=== PATIENT | female | born 1960 | race American Indian/Alaskan Native ===

== ENCOUNTER 2018-01-09 23:51 | Emergency (ER) | payer BC, OTHER ==
[2018-01-09] MEDS ORDERED: Ketorolac 10 MG Tab PO ONE (23:52)
[2018-01-10 00:11] VITALS: BP 153/81
--- NOTE | 2018-01-10 00:48 | EDM.PDOC ---
ED HPI GENERAL MEDICAL PROBLEM - General Chief Complaint: Chest Pain Stated Complaint: CHEST PAIN [id number] Time Seen by Provider: 01/10/18 00:25 Source of Information: Reports: Patient History Limitations: Reports: No Limitations - History of Present Illness INITIAL COMMENTS - FREE TEXT/NARRATIVE: This 57 yo female patient reports to the ED with right sided chest pain that started yesterday morning (01/09/18). The patient reports her symptoms have been intermittent all day. The patient reports that she struggled with her car door 2 days ago, but has had no additional injury to the area. The patient reports increased pain with deep breathing and moving her right arm. The patient has not taken anything for her symptoms. Onset: Today Duration: Constant Location: Reports: Chest (right sided chest pain) Quality: Reports: Ache, Sharp, Stabbing Severity: Severe Improves with: Reports: Rest Worsens with: Reports: Movement Context: Reports: Other Associated Symptoms: Reports: Chest Pain (right sided chest wall pain) Right Chest Pain Score (Numeric/FACES): 7 - Related Data Allergies Allergy/AdvReac Type Severity Reaction Status Date / Time strawberry [[place]] Allergy Hives Verified 05/10/16 21:49 tomato [Tomato] Allergy Hives Verified 05/10/16 21:49 Home Meds: Home Meds . [No Known Home Meds] 01/10/18 [History] Past Medical History HEENT History: Reports: Impaired Vision [employer] History: Reports: Psychiatric History: Reports: Anxiety Endocrine/Metabolic History: Reports: Diabetes, Type II Hematologic History: Reports: Bleeding Disorder - Past Surgical History GI Surgical History: Reports: Appendectomy, Cholecystectomy Social & Family History - Tobacco Use Smoking Status *Q: Unknown Ever Smoked - Caffeine Use Caffeine Use: Reports: Coffee, Soda ED ROS GENERAL - Review of Systems Review Of Systems: ROS reveals no pertinent complaints other than HPI. ED EXAM, GENERAL - Physical Exam Exam: See Below Exam Limited By: No Limitations General Appearance: Alert, WD/WN, Moderate Distress Eye Exam: Bilateral Eye: EOMI, Normal Inspection, PERRL Ears: Normal External Exam, Normal Canal, Hearing Grossly Normal, Normal TMs Nose: Normal Inspection, Normal Mucosa, No Blood Throat/Mouth: Normal Inspection, Normal Lips, Normal Teeth, Normal Gums, Normal Oropharynx, Normal Voice, No Airway Compromise Head: Atraumatic, Normocephalic Neck: Normal Inspection, Supple, Non-Tender, Full Range of Motion Respiratory/Chest: No Respiratory Distress, Lungs Clear, Normal Breath Sounds, No Accessory Muscle Use, Other (right sided chest wall tenderness) Cardiovascular: Normal Peripheral Pulses, Regular Rate, Rhythm, No Edema, No Gallop, No JVD, No Murmur, No Rub GI/Abdominal: Normal Bowel Sounds, Soft, Non-Tender, No Organomegaly, No Distention, No Abnormal Bruit, No Mass (Female) Exam: Deferred Rectal (Female) Exam: Deferred Back Exam: Normal Inspection, Full Range of Motion, NT Extremities: Normal Inspection, Normal Range of Motion, Non-Tender, Normal Capillary Refill, No Pedal Edema Neurological: Alert, Oriented, CN II-XII Intact, Normal Cognition, Normal Gait, Normal Reflexes, No Motor/Sensory Deficits Psychiatric: Normal Affect, Normal Mood Skin Exam: Warm, Dry, Intact, Normal Color, No Rash Lymphatic: No Adenopathy Course - Vital Signs Last Recorded V/S: Last Vital Signs Temp 36.4 C 01/10/18 00:10 Pulse 84 01/10/18 00:10 Resp 23 H 01/10/18 00:10 BP 153/81 H 01/10/18 00:10 Pulse Ox 94 L 01/10/18 00:10 - Orders/Labs/Meds Orders: Active Orders 24 hr Category Date Time Status EKG Documentation Completion [RC] URGENT Care 01/09/18 23:57 Ordered UA W/MICROSCOPIC [URIN] Stat Lab 01/10/18 00:00 Ordered Labs: Laboratory Tests 01/09/18 01/09/18 01/09/18 Range/Units 00:10 00:10 00:10 WBC 6.9 (5.0-10.0) 10^3/uL RBC 4.60 (4.2-5.4) 10^6/uL Hgb 15.5 (12.0-16.0) g/dL Hct 46.1 (37.0-47.0) % MCV 100.2 H (80-100) fL MCH 33.7 (27.0-34.0) pg MCHC 33.6 (33.0-35.0) g/dL Plt Count 226 (150-450) 10^3/uL Neut % (Auto) 57.9 (42.2-75.2) % Lymph % (Auto) 28.2 (20.5-50.1) % [place] % (Auto) 9.9 H (2-8) % Eos % (Auto) 3.1 H (1.0-3.0) % Baso % (Auto) 0.9 (0.0-1.0) % PT (9.0-12.0) SEC INR (0.9-1.2) D-Dimer, Quantitative < 100 (0-400) ng/mL Sodium 137 (135-145) mmol/L Potassium 4.5 (3.6-5.0) mmol/L Chloride 101 (101-111) mmol/L Carbon Dioxide 28.0 (21.0-31.0) mmol/L Anion Gap 12.5 BUN 16 (7-18) mg/dL Creatinine 0.7 (0.6-1.3) mg/dL Est Cr Clr Drug Dosing 62.92 mL/min Estimated GFR (MDRD) > 60 BUN/Creatinine Ratio 22.85 Glucose 567 H* (74-105) mg/dL Calcium 9.5 (8.4-10.2) mg/dl Total Bilirubin 0.8 (0.2-1.0) mg/dL AST 40 (10-42) IU/L ALT 63 H (10-60) IU/L Alkaline Phosphatase 224 H (42-121) IU/L Troponin I < 0.02 (0.00-0.02) ng/ml Total Protein 7.4 (6.7-8.2) g/dl Albumin 4.0 (3.2-5.5) g/dl Globulin 3.4 Albumin/Globulin Ratio 1.18 Urine Color (YELLOW) Urine Appearance (CLEAR) Urine pH (5.0-9.0) Ur Specific [place] (1.005-1.030) Urine Protein (NEGATIVE) Urine Glucose (UA) (NEGATIVE) Urine Ketones (NEGATIVE) Urine Occult Blood (NEGATIVE) Urine Nitrite (NEGATIVE) Urine Bilirubin (NEGATIVE) Urine Urobilinogen (0.2-1.0) mg/dL Ur Leukocyte Esterase (NEGATIVE) Urine RBC /HPF Urine WBC (0-5/HPF) /HPF Ur Epithelial Cells /HPF Urine Bacteria (0-FEW/HPF) /HPF Urine Yeast (0/HPF) /HPF 01/09/18 01/10/18 Range/Units 00:10 00:05 WBC (5.0-10.0) 10^3/uL RBC (4.2-5.4) 10^6/uL Hgb (12.0-16.0) g/dL Hct (37.0-47.0) % MCV (80-100) fL MCH (27.0-34.0) pg MCHC (33.0-35.0) g/dL Plt Count (150-450) 10^3/uL Neut % (Auto) (42.2-75.2) % Lymph % (Auto) (20.5-50.1) % [place] % (Auto) (2-8) % Eos % (Auto) (1.0-3.0) % Baso % (Auto) (0.0-1.0) % PT 9.1 (9.0-12.0) SEC INR 0.9 (0.9-1.2) D-Dimer, Quantitative (0-400) ng/mL Sodium (135-145) mmol/L Potassium (3.6-5.0) mmol/L Chloride (101-111) mmol/L Carbon Dioxide (21.0-31.0) mmol/L Anion Gap BUN (7-18) mg/dL Creatinine (0.6-1.3) mg/dL Est Cr Clr Drug Dosing mL/min Estimated GFR (MDRD) BUN/Creatinine Ratio Glucose (74-105) mg/dL Calcium (8.4-10.2) mg/dl Total Bilirubin (0.2-1.0) mg/dL AST (10-42) IU/L ALT (10-60) IU/L Alkaline Phosphatase (42-121) IU/L Troponin I (0.00-0.02) ng/ml Total Protein (6.7-8.2) g/dl Albumin (3.2-5.5) g/dl Globulin Albumin/Globulin Ratio Urine Color Light yellow (YELLOW) Urine Appearance Clear (CLEAR) Urine pH 7.0 (5.0-9.0) Ur Specific [place] 1.015 (1.005-1.030) Urine Protein Negative (NEGATIVE) Urine Glucose (UA) 500 H (NEGATIVE) Urine Ketones Negative (NEGATIVE) Urine Occult Blood Negative (NEGATIVE) Urine Nitrite Negative (NEGATIVE) Urine Bilirubin Negative (NEGATIVE) Urine Urobilinogen 0.2 (0.2-1.0) mg/dL Ur Leukocyte Esterase Negative (NEGATIVE) Urine RBC 0-5 /HPF Urine WBC 0-5 (0-5/HPF) /HPF Ur Epithelial Cells Rare /HPF Urine Bacteria Rare (0-FEW/HPF) /HPF Urine Yeast Rare H (0/HPF) /HPF Meds: Medications Discontinued Medications Generic Name Dose Route Start Last Admin Trade Name Loraine PRN Reason Stop Dose Admin Ketorolac Tromethamine 60 mg 01/10/18 00:56 Toradol IM 01/10/18 00:57 ONETIME ONE Departure - Departure Time of Disposition: 00:58 Disposition: Home, Self-Care 01 Condition: Fair Clinical Impression: Non-cardiac chest pain Chest wall muscle strain Qualifiers: Encounter type: initial encounter Qualified Code(s): S29.011A - Strain of muscle and tendon of front wall of thorax, initial encounter Instructions: Nonspecific Chest Pain, [id number], Chest Wall Pain, Easy-to- Read Forms: ED Department Discharge Care Plan Goals: The patient was advised of the examination, lab and EKG results during the visit. The patient was given an injection of Toradol while in the ED. The patient was discharged with Toradol (10 mg) #1 to take in 6 hours and a script for Toradol (10 mg) #20 to take 1 by mouth every 6 hours. The patient was advised to take her medications as she was prescribed for her diabetes. The patient should visit her primary care facility next week for continued evaluation and management. If the patient has any additional symptoms or concerns, the patient should visit her primary care facility or return to the emergency department. - My Orders Last 24 Hours: My Active Orders 01/09/18 23:57 EKG Documentation Completion [RC] URGENT 01/10/18 00:00 UA W/MICROSCOPIC [URIN] Stat - Assessment/Plan Last 24 Hours: My Active Orders 01/09/18 23:57 EKG Documentation Completion [RC] URGENT 01/10/18 00:00 UA W/MICROSCOPIC [URIN] Stat
[2018-01-10 00:49] LABS: CHLORIDE,CL 101 mmol/L (101-111); SODIUM,NA 137 mmol/L (135-145)
[2018-01-10] MEDS ORDERED: Ketorolac 30 MG/ML SDV IM ONE (00:56)
[2018-01-10] MEDS ORDERED: Ketorolac 10 MG Tab ONE (01:01)
--- NOTE | 2018-01-13 07:37 | EKG ---
01/09/2018- ALEKSANDAR DE LEON - FINDINGS: A 12-lead EKG shows normal sinus rhythm with a heart rate of 91. No significant ST elevation or ST depression noted on this 12-lead EKG except for nonspecific ST-T wave changes noted on lead III and aVF. [facility] /[id number]
== END 2018-01-10 01:12 | disposition home or self-care (01) ==
LOC: DL.ED 23:51
DX: S29.011A Strain of muscle and tendon of front wall of thorax, initial encounter (principal); E11.9 Type 2 diabetes mellitus without complications; Z91.018 Allergy to other foods; X58.XXXA Exposure to other specified factors, initial encounter
CPT/HCPCS: 36415; 80053; 81001; 84484; 85025; 85379; 85610; 96372; 99284; J1885; 99283; A9270-GY

== ENCOUNTER 2019-09-11 21:52 | Emergency (ER) | payer OTHER ==
[2019-09-11 21:38] VITALS: BP 133/69; PULSE 89
--- NOTE | 2019-09-11 21:43 | EDM.PDOC ---
ED HPI GENERAL MEDICAL PROBLEM - General Chief Complaint: Neuro Symptoms/Deficits Stated Complaint: LAW ENFORCEMENT Time Seen by Provider: 09/11/19 21:42 Source of Information: Reports: Patient, Police History Limitations: Reports: No Limitations - History of Present Illness INITIAL COMMENTS - FREE TEXT/NARRATIVE: sent from halfway for left side weakness since 3pm, getting worse, some CP/SOB, states had stroke on left side 2014 got better but today it is new. Chest Pain Score (Numeric/FACES): 6 - Related Data Allergies Allergy/AdvReac Type Severity Reaction Status Date / Time strawberry [[place]] Allergy Hives Verified 09/11/19 21:40 tomato [Tomato] Allergy Hives Verified 09/11/19 21:40 Home Meds: Home Meds Alogliptin Benzoate [Alogliptin] 25 mg PO DAILY 09/11/19 [History] Aspirin [Halfprin] 81 mg PO DAILY 09/11/19 [History] Losartan Potassium 25 mg PO DAILY 09/11/19 [History] Pioglitazone [Actos] 15 mg PO DAILY 09/11/19 [History] Simvastatin 20 mg PO BEDTIME 09/11/19 [History] metFORMIN HCl [Metformin HCl] 1,000 mg PO BID 09/11/19 [History] Past Medical History HEENT History: Reports: Impaired Vision 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 ED EXAM, NEURO - Physical Exam Exam: See Below Exam Limited By: No Limitations General Appearance: Alert, WD/WN, No Apparent Distress Eye Exam: Bilateral Eye: PERRL (pupils ER @ 4mm) Ears: Hearing Grossly Normal Throat/Mouth: Normal Voice, No Airway Compromise Head Exam: Atraumatic Neck: Non-Tender, Full Range of Motion Respiratory/Chest: No Respiratory Distress Cardiovascular: Regular Rate, Rhythm GI/Abdominal: Soft, Non-Tender Neurological: Other (left arm-leg unable to raise. face symmetrical) Psychiatric: Flat Affect Skin Exam: Warm, Dry, Normal Color Course - Vital Signs Last Recorded V/S: Last Vital Signs Temp 36.8 C 09/11/19 21:33 Pulse 89 09/11/19 21:33 Resp 20 09/11/19 21:33 BP 133/69 09/11/19 21:33 Pulse Ox 97 09/11/19 21:33 - Orders/Labs/Meds Orders: Active Orders 24 hr Category Date Time Status EKG 12 Lead [EKG Documentation Completion] [RC] STAT Care 09/11/19 21:30 Active Labs: Laboratory Tests 09/11/19 09/11/19 Range/Units 21:40 21:40 WBC 8.4 (5.0-10.0) 10^3/uL RBC 4.72 (4.2-5.4) 10^6/uL Hgb 16.0 (12.0-16.0) g/dL Hct 46.3 (37.0-47.0) % MCV 98.1 (80-100) fL MCH 33.9 (27.0-34.0) pg MCHC 34.6 (33.0-35.0) g/dL Plt Count 240 (150-450) 10^3/uL Neut % (Auto) 59.7 (42.2-75.2) % Lymph % (Auto) 27.9 (20.5-50.1) % [place] % (Auto) 11.0 H (2-8) % Eos % (Auto) 0.8 L (1.0-3.0) % Baso % (Auto) 0.6 (0.0-1.0) % Sodium 140 (135-145) mmol/L Potassium 3.1 L (3.6-5.0) mmol/L Chloride 104 (101-111) mmol/L Carbon Dioxide 26.0 (21.0-31.0) mmol/L Anion Gap 13.1 BUN 14 (7-18) mg/dL Creatinine 0.6 (0.6-1.3) mg/dL Est Cr Clr Drug Dosing TNP Estimated GFR (MDRD) > 60 BUN/Creatinine Ratio 23.33 Glucose 242 H (74-105) mg/dL Calcium 9.7 (8.4-10.2) mg/dl Total Bilirubin 1.3 H (0.2-1.0) mg/dL AST 33 (10-42) IU/L ALT 46 (10-60) IU/L Alkaline Phosphatase 101 (42-121) IU/L Troponin I < 0.02 (0.00-0.02) ng/ml Total Protein 7.8 (6.7-8.2) g/dl Albumin 4.3 (3.2-5.5) g/dl Globulin 3.5 Albumin/Globulin Ratio 1.23 Ketones Negative - Re-Assessments/Exams Free Text/Narrative Re-Assessment/Exam: 09/12/19 00:[address] Oh @ [facility] who kindly accepted pt. Departure - Departure Time of Disposition: 00:03 Disposition: DC/Tfer to [facility] 02 Condition: Fair Clinical Impression: Left hemiplegia - Discharge Information Forms: Interfacility Transfer EMTALA Sepsis Event Note - Evaluation Sepsis Screening Result: No Definite Risk - Focused Exam Vital Signs: Vital Signs Temp Pulse Resp BP Pulse Ox 09/11/19 21:33 36.8 C 89 20 133/69 97 Date Exam was Performed: 09/12/19 Time Exam was Performed: 00:02 - My Orders Last 24 Hours: My Active Orders 09/11/19 21:30 EKG 12 Lead [EKG Documentation Completion] [RC] STAT - Assessment/Plan Last 24 Hours: My Active Orders 09/11/19 21:30 EKG 12 Lead [EKG Documentation Completion] [RC] STAT
[2019-09-11 22:10] LABS: ANION GAP 13.1; CHLORIDE,CL 104 mmol/L (101-111); SODIUM,NA 140 mmol/L (135-145)
== END 2019-09-12 01:00 ==
LOC: DL.ED 21:52
DX: G81.94 Hemiplegia, unspecified affecting left nondominant side (principal); E11.9 Type 2 diabetes mellitus without complications; Z91.018 Allergy to other foods; Z79.84 Long term (current) use of oral hypoglycemic drugs; Z79.82 Long term (current) use of aspirin; Z79.899 Other long term (current) drug therapy; Z90.49 Acquired absence of other specified parts of digestive tract; Z86.73 Personal history of transient ischemic attack (TIA), and cerebral infarction without residual deficits
CPT/HCPCS: 36415; 70450; 71045; 80053; 82009; 82962; 84484; 85025; 93005; 99285-25

== ENCOUNTER 2022-11-13 05:22 | Day surgery (SDC) | payer MEDICAID, OTHER ==
[~2022-11-13 05:22] MED LIST: Sodium Chloride 0.9% 10 ML Syringe FLUSH PRN; Sodium Chloride 0.9% 10 ML Syringe FLUSH SCH
[2022-11-13] MEDS ORDERED: Dextrose 5%-0.45% NaCl 1,000 ML IV SCH (06:00)
[2022-11-13] MEDS ORDERED: fentaNYL 100 MCG/2 ML SDV ONE (06:17)
[2022-11-13] MEDS ORDERED: Midazolam 1 MG/ML 2 ML SDV ONE (06:17)
[2022-11-13] MEDS ORDERED: fentaNYL 100 MCG/2 ML SDV IV ONE ×2 (06:31)
[2022-11-13] MEDS ORDERED: Midazolam 1 MG/ML 2 ML SDV IV ONE ×2 (06:32)
[2022-11-13 08:45] VITALS: BP 161/74; PULSE 74
== END 2022-11-13 08:55 | disposition home or self-care (01) ==
LOC: DL.ENDO 05:22
PROVIDERS: ATTEND Internal Medicine Gastroenterology
DX: K63.5 Polyp of colon (principal); K57.30 Diverticulosis of large intestine without perforation or abscess without bleeding; E11.9 Type 2 diabetes mellitus without complications; E78.5 Hyperlipidemia, unspecified; I10 Essential (primary) hypertension; E66.09 Other obesity due to excess calories; Z90.49 Acquired absence of other specified parts of digestive tract; Z80.0 Family history of malignant neoplasm of digestive organs; Z68.33 Body mass index [BMI] 33.0-33.9, adult
CPT/HCPCS: J2250; J3010; J7042

== ENCOUNTER 2024-01-20 16:45 | Emergency (ER) | payer BC, OTHER ==
[2024-01-20 17:11] LABS: HEMATOCRIT 34.2 % (37.0-47.0); MEAN CORPUSCULAR HEMOGLOBIN 33.3 pg (27.0-34.0); MEAN CORPUSCULAR HGB CONC 32.2 g/dL (33.0-35.0); MEAN CORPUSCULAR VOLUME 103.6 fL (80-100); PLATELET COUNT,PLT 151 10^3/uL (150-450)
[2024-01-20 17:20] LABS: BASOPHILS PERCENT AUTO 0.8 % (0.0-1.0); LYMPHOCYTES PERCENT AUTO 16.1 % (20.5-50.1); MONOCYTES PERCENT AUTO 0.8 % (2-8); NEUTROPHILS PERCENT AUTO 78.3 % (42.2-75.2); WHITE BLOOD CELL COUNT,WBC 1.2 10^3/uL (5.0-10.0)
[2024-01-20 17:25] LABS: INR 0.9 (0.9-1.2); PROTHROMBIN TIME 9.2 SEC (9.0-12.0); PTT,PARTIAL THROMBOPLSTIN TIME 24.5 SEC (22.0-34.0)
[2024-01-20] MEDS: Sodium Chloride 0.9% 10 ML Syringe FLUSH PRN (17:29)
[2024-01-20 17:30] LABS: ALBUMIN 2.1 g/dL (3.4-5.0); ANION GAP 14.3 mEq/L (7-13); BILIRUBIN TOTAL 0.9 mg/dL (0.2-1.0); BUN/CREATININE RATIO 22.7 (No establ ref range); C-REACTIVE PROTEIN 8.02 ng/dL (<=0.50); CALCIUM 8.3 mg/dL (8.5-10.1); CREATININE 0.97 mg/dL (0.55-1.02); EST CRCL DRUG DOSING (CG) 42.09 mL/min; LACTIC ACID 1.3 mmol/L (0.4-2.0); MAGNESIUM 1.8 mg/dL (1.8-2.4); POTASSIUM,K 4.3 mmol/L (3.5-5.1); PROTEIN TOTAL,TP 6.4 g/dL (6.4-8.2)
[2024-01-20] MEDS: Piperacillin/Tazobactam 4.5 GM in Sodium Chloride 0.9% 100 ML IV ONE (17:33)
[2024-01-20 17:44] LABS: A/G RATIO 0.49
[2024-01-20 17:50] LABS: CORONAVIRUS COVID-19 NAA NEGATIVE (NEGATIVE); INFLUENZA A NAA NEGATIVE (NEGATIVE); INFLUENZA B NAA NEGATIVE (NEGATIVE); RESPIRATORY SYNCYTIAL VIR NAA NEGATIVE (NEGATIVE)
[2024-01-20 18:11] LABS: BAND PERCENT MAN 2 %; EOSINOPHILS PERCENT MAN 6 % (1-3); LYMPHOCYTES PERCENT MAN 18 % (20-50); METAMYELOCYTE PERCENT MAN 2; MONOCYTES PERCENT MAN 1 % (2-8); SEG NEUTROPHILS PERCENT MAN 71 % (42-75)
[2024-01-20] MEDS: Vancomycin 1.5 GM in Sodium Chloride 0.9% 500 ML IV ONE (18:16)
[2024-01-20 18:24] LABS: APPEARANCE,URINE CLEAR (CLEAR); BILIRUBIN,URINE NEGATIVE (NEGATIVE); COLOR,URINE YELLOW (YELLOW); GLUCOSE,URINE 500 (NEGATIVE); KETONES,URINE NEGATIVE (NEGATIVE); LEUKOCYTE ESTERASE,URINE NEGATIVE (NEGATIVE); NITRITE,URINE NEGATIVE (NEGATIVE); OCCULT BLOOD,URINE MODERATE (NEGATIVE); PROTEIN,URINE >=300 (NEGATIVE); UROBILINOGEN,URINE 0.2 mg/dL (0.2-1.0)
[2024-01-20 18:51] LABS: BACTERIA,URINE MODERATE /HPF (0-FEW/HPF); EPITHELIAL CELLS,URINE FEW /HPF (NOT SEEN); MUCUS,URINE OCCASIONAL /LPF (NOT SEEN); WBC,URINE 0-5 /HPF (0-5/HPF)
[2024-01-20 18:56] VITALS: BP 133/59; PULSE 106
== END 2024-01-20 19:35 ==
LOC: DL.ED 16:45
DX: A41.9 Sepsis, unspecified organism (principal); J18.9 Pneumonia, unspecified organism; R09.89 Other specified symptoms and signs involving the circulatory and respiratory systems; I51.7 Cardiomegaly; I10 Essential (primary) hypertension; E11.9 Type 2 diabetes mellitus without complications; Z91.018 Allergy to other foods; Z88.8 Allergy status to other drugs, medicaments and biological substances; Z79.82 Long term (current) use of aspirin; Z79.899 Other long term (current) drug therapy; Z86.16 Personal history of COVID-19; Z90.49 Acquired absence of other specified parts of digestive tract
CPT/HCPCS: 0241U; 36415; 71045; 80053; 81001; 83605; 83735; 83880; 84145; 84484; 85025; 85610; 85730; 86140; 87040; 87077; 87186; 93005; 93010; 96365; 96367; 99285; J2543; J3370; J3490; J7040

== ENCOUNTER 2025-03-08 05:17 | Emergency (ER) | payer SELFPAY ==
[2025-03-08] MEDS ORDERED: Sodium Chloride 0.9% 10 ML Syringe FLUSH PRN (05:48)
[2025-03-08 05:58] LABS: BASOPHILS PERCENT AUTO 0.6 % (0.0-1.0); EOSINOPHILS PERCENT AUTO 5.8 % (1.0-3.0); LYMPHOCYTES PERCENT AUTO 27.5 % (20.5-50.1); MONOCYTES PERCENT AUTO 10.3 % (2-8); NEUTROPHILS PERCENT AUTO 55.8 % (42.2-75.2); PLATELET COUNT,PLT 192 10^3/uL (150-450); RED BLOOD CELL COUNT 3.03 10^6/uL (4.2-5.4); WHITE BLOOD CELL COUNT,WBC 4.7 10^3/uL (5.0-10.0)
[2025-03-08 06:15] LABS: D-DIMER QUANTITATIVE 1060.0 ng/mL (0-400)
[2025-03-08 06:19] LABS: ALANINE AMINOTRANSFERASE,ALT 23.0 U/L (14-59); ASPARTATE AMNIOTRANSFERASE,AST 31.0 U/L (15-37); BILIRUBIN TOTAL 0.7 mg/dL (0.2-1.0); BLOOD UREA NITROGEN,BUN 20.0 mg/dL (7-18); CARBON DIOXIDE,CO2 27.0 mmol/L (21-32); CHLORIDE,CL 113.0 mmol/L (98-107); CREATININE 1.47 mg/dL (0.55-1.02); EST CRCL DRUG DOSING (CG) 27.41 mL/min; GLUCOSE RANDOM 138.0 mg/dL (70-99); POTASSIUM,K 3.1 mmol/L (3.5-5.1); PROTEIN TOTAL,TP 5.9 g/dL (6.4-8.2); SODIUM,NA 146.0 mmol/L (136-145)
[2025-03-08 06:22] LABS: A/G RATIO 0.84; ESTIMATED GFR 39.0 mL/min (>=60)
[2025-03-08 06:25] LABS: B-TYPE NATRIURETIC PEPTIDE,BNP 1020.0 pg/ml (0-100)
[2025-03-08] MEDS: Iopamidol 612 MG/ML 100 ML Bottle IVPUSH ONE (06:36)
[2025-03-08] MEDS: Potassium Chloride 10 MEQ Tab.ER PO ONE (07:07)
[2025-03-08 07:11] LABS: INR 0.9 (0.9-1.2); PTT,PARTIAL THROMBOPLSTIN TIME 24.1 SEC (22.0-34.0)
[2025-03-08] MEDS: Iopamidol 755 Mg/ML 100 ML Bottle IVPUSH ONE (07:37)
[2025-03-08 08:33] LABS: APPEARANCE,URINE SLIGHTLY CLOUDY (CLEAR); GLUCOSE,URINE 500 (NEGATIVE); OCCULT BLOOD,URINE MODERATE (NEGATIVE)
[2025-03-08 08:53] VITALS: BP 187/81; PULSE 74
[2025-03-08 08:58] LABS: EPITHELIAL CELLS,URINE FEW /HPF (NOT SEEN)
== END 2025-03-08 08:46 | disposition home or self-care (01) ==
LOC: DL.ED 05:17
DX: R07.89 Other chest pain (principal); I10 Essential (primary) hypertension; E11.9 Type 2 diabetes mellitus without complications; Z91.018 Allergy to other foods; Z88.8 Allergy status to other drugs, medicaments and biological substances; Z79.899 Other long term (current) drug therapy; Z86.16 Personal history of COVID-19; Z90.49 Acquired absence of other specified parts of digestive tract
CPT/HCPCS: 36415; 70450; 71045; 71275; 80053; 81001; 83735; 83880; 84484; 85025; 85379; 85610; 85730; 93005; 93010; 99284; 99285; A9270; Q9967

== ENCOUNTER 2025-03-21 11:56 | Inpatient (IN) | payer MEDICAID ==
[2025-03-21] MEDS ORDERED: Sodium Chloride 0.9% 10 ML Syringe FLUSH PRN ×2 (12:11→14:51)
[2025-03-21 12:40] LABS: B-TYPE NATRIURETIC PEPTIDE,BNP 2270 pg/ml (0-100)
[2025-03-21 13:01] LABS: ALANINE AMINOTRANSFERASE,ALT 24 U/L (14-59); ASPARTATE AMNIOTRANSFERASE,AST 26 U/L (15-37); BILIRUBIN TOTAL 0.4 mg/dL (0.2-1.0); BLOOD UREA NITROGEN,BUN 35 mg/dL (7-18); CARBON DIOXIDE,CO2 28 mmol/L (21-32); CHLORIDE,CL 114 mmol/L (98-107); CREATININE 1.54 mg/dL (0.55-1.02); GLUCOSE RANDOM 141 mg/dL (70-99); POTASSIUM,K 3.6 mmol/L (3.5-5.1); PROTEIN TOTAL,TP 5.9 g/dL (6.4-8.2); SODIUM,NA 148 mmol/L (136-145)
[2025-03-21 13:02] LABS: A/G RATIO 0.79; ESTIMATED GFR 37 mL/min (>=60)
[2025-03-21] MEDS: Furosemide 40 MG/4 ML VIAL IV ONE (13:12)
[2025-03-21 14:36] LABS: BASOPHILS PERCENT AUTO 0.5 % (0.0-1.0); EOSINOPHILS PERCENT AUTO 1.4 % (1.0-3.0); LYMPHOCYTES PERCENT AUTO 17.6 % (20.5-50.1); MONOCYTES PERCENT AUTO 8.5 % (2-8); NEUTROPHILS PERCENT AUTO 72.0 % (42.2-75.2); PLATELET COUNT,PLT 229 10^3/uL (150-450); RED BLOOD CELL COUNT 2.89 10^6/uL (4.2-5.4); WHITE BLOOD CELL COUNT,WBC 5.5 10^3/uL (5.0-10.0)
[2025-03-21] MEDS ORDERED: Ondansetron 4 MG/2 ML SDV IVPUSH PRN (14:51)
[2025-03-21] MEDS ORDERED: Sennosides/Docusate Sodium 50-8.6 MG Tab PO PRN (14:51)
[2025-03-21] MEDS ORDERED: 50% Dextrose in Water 50 ML Syringe IVPUSH PRN (15:26)
[2025-03-21 15:29] LABS: IRON,FE 29.0 ug/dL (50-170); PERCENT FE SATURATION 12.7 % (20.0-50.0)
[2025-03-21 15:43] LABS: FOLIC ACID 12.3 ng/mL (8.6-58.9)
[2025-03-21] MEDS: Furosemide 40 MG/4 ML VIAL IVPUSH ONE (15:58)
[2025-03-21 16:40] LABS: T4 FREE 1.06 ng/dL (0.76-1.46); TSH ULTRASENSITIVE 7.49 uIU/mL (0.36-3.74)
[2025-03-21] MEDS: Insulin Glarg,Human.Rec.Analog 100 Unit/ML 10 ML Vial SUBCUT SCH (20:51)
[2025-03-21] MEDS: Sodium Chloride 0.9% 10 ML Syringe FLUSH SCH (20:54)
[2025-03-22 05:56] LABS: BASOPHILS PERCENT AUTO 0.6 % (0.0-1.0); EOSINOPHILS PERCENT AUTO 4.9 % (1.0-3.0); LYMPHOCYTES PERCENT AUTO 16.7 % (20.5-50.1); MONOCYTES PERCENT AUTO 10.3 % (2-8); NEUTROPHILS PERCENT AUTO 67.5 % (42.2-75.2); PLATELET COUNT,PLT 213 10^3/uL (150-450); RED BLOOD CELL COUNT 2.76 10^6/uL (4.2-5.4); WHITE BLOOD CELL COUNT,WBC 5.3 10^3/uL (5.0-10.0)
[2025-03-22 06:12] LABS: ALANINE AMINOTRANSFERASE,ALT 22.0 U/L (14-59); ASPARTATE AMNIOTRANSFERASE,AST 23.0 U/L (15-37); BILIRUBIN TOTAL 0.3 mg/dL (0.2-1.0); BLOOD UREA NITROGEN,BUN 39.0 mg/dL (7-18); CARBON DIOXIDE,CO2 30.0 mmol/L (21-32); CHLORIDE,CL 112.0 mmol/L (98-107); CREATININE 1.64 mg/dL (0.55-1.02); EST CRCL DRUG DOSING (CG) 24.56 mL/min; GLUCOSE RANDOM 152.0 mg/dL (70-99); POTASSIUM,K 4.2 mmol/L (3.5-5.1); PROTEIN TOTAL,TP 5.4 g/dL (6.4-8.2); SODIUM,NA 147.0 mmol/L (136-145)
[2025-03-22 06:13] LABS: A/G RATIO 0.74; ESTIMATED GFR 35.0 mL/min (>=60)
[2025-03-22 10:21] LABS: BODY FLUID TYPE PLEURAL FLUID
[2025-03-22 10:47] LABS: GLUCOSE,BODY FLUID 159
[2025-03-22] MEDS: VALSARTAN PO SCH (11:33)
[2025-03-22] MEDS: SACUBITRIL PO SCH (11:33)
[2025-03-23 06:04] LABS: BASOPHILS PERCENT AUTO 0.4 % (0.0-1.0); EOSINOPHILS PERCENT AUTO 6.2 % (1.0-3.0); LYMPHOCYTES PERCENT AUTO 23.0 % (20.5-50.1); MONOCYTES PERCENT AUTO 11.3 % (2-8); NEUTROPHILS PERCENT AUTO 59.1 % (42.2-75.2); PLATELET COUNT,PLT 194 10^3/uL (150-450); RED BLOOD CELL COUNT 2.68 10^6/uL (4.2-5.4); WHITE BLOOD CELL COUNT,WBC 4.5 10^3/uL (5.0-10.0)
[2025-03-23 06:35] LABS: ALANINE AMINOTRANSFERASE,ALT 21.0 U/L (14-59); ASPARTATE AMNIOTRANSFERASE,AST 20.0 U/L (15-37); BILIRUBIN TOTAL 0.3 mg/dL (0.2-1.0); BLOOD UREA NITROGEN,BUN 40.0 mg/dL (7-18); CARBON DIOXIDE,CO2 31.0 mmol/L (21-32); CHLORIDE,CL 114.0 mmol/L (98-107); CREATININE 1.86 mg/dL (0.55-1.02); EST CRCL DRUG DOSING (CG) 21.37 mL/min; GLUCOSE RANDOM 121.0 mg/dL (70-99); POTASSIUM,K 3.9 mmol/L (3.5-5.1); PROTEIN TOTAL,TP 4.9 g/dL (6.4-8.2); SODIUM,NA 148.0 mmol/L (136-145)
[2025-03-23 06:39] LABS: A/G RATIO 0.69; ESTIMATED GFR 30.0 mL/min (>=60)
[2025-03-23 16:12] LABS: CREATININE 1.47 mg/dL (0.55-1.02); EST CRCL DRUG DOSING (CG) 27.04 mL/min; ESTIMATED GFR 39.0 mL/min (>=60); POTASSIUM,K 4.0 mmol/L (3.5-5.1); SODIUM,NA 146.0 mmol/L (136-145)
[2025-03-24 06:25] LABS: BASOPHILS PERCENT AUTO 0.8 % (0.0-1.0); EOSINOPHILS PERCENT AUTO 7.2 % (1.0-3.0); LYMPHOCYTES PERCENT AUTO 25.4 % (20.5-50.1); MONOCYTES PERCENT AUTO 9.1 % (2-8); NEUTROPHILS PERCENT AUTO 57.5 % (42.2-75.2); PLATELET COUNT,PLT 197 10^3/uL (150-450); RED BLOOD CELL COUNT 2.65 10^6/uL (4.2-5.4); WHITE BLOOD CELL COUNT,WBC 4.7 10^3/uL (5.0-10.0)
[2025-03-24 06:48] LABS: ALANINE AMINOTRANSFERASE,ALT 20.0 U/L (14-59); ASPARTATE AMNIOTRANSFERASE,AST 19.0 U/L (15-37); BILIRUBIN TOTAL 0.3 mg/dL (0.2-1.0); BLOOD UREA NITROGEN,BUN 41.0 mg/dL (7-18); CARBON DIOXIDE,CO2 30.0 mmol/L (21-32); CHLORIDE,CL 112.0 mmol/L (98-107); CREATININE 1.43 mg/dL (0.55-1.02); EST CRCL DRUG DOSING (CG) 27.8 mL/min; GLUCOSE RANDOM 114.0 mg/dL (70-99); POTASSIUM,K 4.4 mmol/L (3.5-5.1); PROTEIN TOTAL,TP 4.8 g/dL (6.4-8.2); SODIUM,NA 144.0 mmol/L (136-145)
[2025-03-24 06:53] LABS: A/G RATIO 0.71; ESTIMATED GFR 40.0 mL/min (>=60)
[2025-03-25 06:21] LABS: BASOPHILS PERCENT AUTO 0.4 % (0.0-1.0); EOSINOPHILS PERCENT AUTO 5.8 % (1.0-3.0); LYMPHOCYTES PERCENT AUTO 21.0 % (20.5-50.1); MONOCYTES PERCENT AUTO 11.8 % (2-8); NEUTROPHILS PERCENT AUTO 61.0 % (42.2-75.2); PLATELET COUNT,PLT 182 10^3/uL (150-450); RED BLOOD CELL COUNT 2.60 10^6/uL (4.2-5.4); WHITE BLOOD CELL COUNT,WBC 4.7 10^3/uL (5.0-10.0)
[2025-03-25 06:47] LABS: ALANINE AMINOTRANSFERASE,ALT 19.0 U/L (14-59); ASPARTATE AMNIOTRANSFERASE,AST 19.0 U/L (15-37); BILIRUBIN TOTAL 0.3 mg/dL (0.2-1.0); BLOOD UREA NITROGEN,BUN 42.0 mg/dL (7-18); CARBON DIOXIDE,CO2 30.0 mmol/L (21-32); CHLORIDE,CL 115.0 mmol/L (98-107); CREATININE 1.27 mg/dL (0.55-1.02); EST CRCL DRUG DOSING (CG) 31.3 mL/min; GLUCOSE RANDOM 118.0 mg/dL (70-99); POTASSIUM,K 4.6 mmol/L (3.5-5.1); PROTEIN TOTAL,TP 4.8 g/dL (6.4-8.2); SODIUM,NA 146.0 mmol/L (136-145)
[2025-03-25 06:50] LABS: A/G RATIO 0.66; ESTIMATED GFR 47.0 mL/min (>=60)
[2025-03-25] MEDS: Furosemide 40 MG/4 ML VIAL IVPUSH ONE (10:51)
[2025-03-25 12:18] VITALS: BP 148/68; PULSE 71
[2025-03-25] MEDS: Insulin Glarg,Human.Rec.Analog 100 Unit/ML 10 ML Vial SUBCUT PRN (15:19)
== END 2025-03-25 13:20 | disposition home or self-care (01) | DRG 291 ==
LOC: DL.ED 11:56 → DL.MS 13:53 → OBSVTOIN 03-22 10:25
PROVIDERS: ADMIT Student in an Organized Health Care Education/Training Program; ATTEND Student in an Organized Health Care Education/Training Program
PROC: 0W993ZZ Drainage of Right Pleural Cavity, Percutaneous Approach (ICD-10-PCS; principal; 2025-03-22)
DX: I13.0 Hypertensive heart and chronic kidney disease with heart failure and stage 1 through stage 4 chronic kidney disease, or unspecified chronic kidney disease (principal); I50.33 Acute on chronic diastolic (congestive) heart failure; E87.0 Hyperosmolality and hypernatremia; J91.8 Pleural effusion in other conditions classified elsewhere; H54.7 Unspecified visual loss; F41.9 Anxiety disorder, unspecified; D53.9 Nutritional anemia, unspecified; E87.8 Other disorders of electrolyte and fluid balance, not elsewhere classified; N18.32 Chronic kidney disease, stage 3b; E11.22 Type 2 diabetes mellitus with diabetic chronic kidney disease; E88.09 Other disorders of plasma-protein metabolism, not elsewhere classified; E03.8 Other specified hypothyroidism; Z86.16 Personal history of COVID-19; Z98.890 Other specified postprocedural states; Z90.49 Acquired absence of other specified parts of digestive tract; Z79.82 Long term (current) use of aspirin; Z88.8 Allergy status to other drugs, medicaments and biological substances; Z91.018 Allergy to other foods; Z79.899 Other long term (current) drug therapy; Z86.73 Personal history of transient ischemic attack (TIA), and cerebral infarction without residual deficits
CPT/HCPCS: 36415; 71045; 80053; 82042; 82565; 82607; 82728; 82746; 82945; 82947; 83036; 83540; 83550; 83735; 83880; 84132; 84295; 84439; 84443; 84484; 85025; 87070; 93005; 94010; 97161-GP; 97165-GO; 99223; 99232; 99233; 99238; A9270-GY; J1815-GY; J1938; J7070

== ENCOUNTER 2025-04-15 10:02 | Emergency (ER) | payer MEDICAID ==
[2025-04-15] MEDS ORDERED: Sodium Chloride 0.9% 10 ML Syringe FLUSH PRN (10:12)
[2025-04-15] MEDS: Nitroglycerin 0.4 MG Tab.SL SL ONE (10:23)
[2025-04-15 10:25] LABS: BASOPHILS PERCENT AUTO 0.7 % (0.0-1.0); EOSINOPHILS PERCENT AUTO 3.3 % (1.0-3.0); LYMPHOCYTES PERCENT AUTO 17.6 % (20.5-50.1); MONOCYTES PERCENT AUTO 6.3 % (2-8); NEUTROPHILS PERCENT AUTO 72.1 % (42.2-75.2); PLATELET COUNT,PLT 207 10^3/uL (150-450); RED BLOOD CELL COUNT 3.04 10^6/uL (4.2-5.4); WHITE BLOOD CELL COUNT,WBC 5.4 10^3/uL (5.0-10.0)
[2025-04-15 10:40] LABS: INR 0.8 (0.9-1.2)
[2025-04-15 10:44] LABS: B-TYPE NATRIURETIC PEPTIDE,BNP 1930.0 pg/ml (0-100)
[2025-04-15 10:48] LABS: A/G RATIO 0.76; ALANINE AMINOTRANSFERASE,ALT 21.0 U/L (14-59); ASPARTATE AMNIOTRANSFERASE,AST 26.0 U/L (15-37); BILIRUBIN TOTAL 0.4 mg/dL (0.2-1.0); BLOOD UREA NITROGEN,BUN 25.0 mg/dL (7-18); CARBON DIOXIDE,CO2 27.0 mmol/L (21-32); CHLORIDE,CL 114.0 mmol/L (98-107); CREATININE 1.4 mg/dL (0.55-1.02); EST CRCL DRUG DOSING (CG) 28.39 mL/min; ESTIMATED GFR 41.0 mL/min (>=60); GLUCOSE RANDOM 124.0 mg/dL (70-99); POTASSIUM,K 4.5 mmol/L (3.5-5.1); PROTEIN TOTAL,TP 5.8 g/dL (6.4-8.2); SODIUM,NA 146.0 mmol/L (136-145)
[2025-04-15] MEDS: Furosemide 40 MG/4 ML VIAL IVPUSH ONE (11:07)
[2025-04-15] MEDS: hydrALAZINE 20 MG/ML SDV IVPUSH ONE (12:11)
[2025-04-15 12:15] VITALS: BP 195/76; PULSE 70
== END 2025-04-15 14:07 | disposition home or self-care (01) ==
LOC: DL.ED 10:02
DX: S29.011A Strain of muscle and tendon of front wall of thorax, initial encounter (principal); R09.89 Other specified symptoms and signs involving the circulatory and respiratory systems; I11.0 Hypertensive heart disease with heart failure; I50.9 Heart failure, unspecified; J81.1 Chronic pulmonary edema; E11.9 Type 2 diabetes mellitus without complications; Z91.018 Allergy to other foods; Z86.73 Personal history of transient ischemic attack (TIA), and cerebral infarction without residual deficits; Z88.8 Allergy status to other drugs, medicaments and biological substances; Z79.899 Other long term (current) drug therapy; Z79.82 Long term (current) use of aspirin; Z86.16 Personal history of COVID-19; Z90.49 Acquired absence of other specified parts of digestive tract; X58.XXXA Exposure to other specified factors, initial encounter; Y93.89 Activity, other specified
CPT/HCPCS: 36415; 71046; 80053; 83735; 83880; 84484; 85025; 85610; 93005; 93010; 96374; 96375; 99284; 99285-25; A9270-GY; J0360; J1920; J1938

== ENCOUNTER 2025-04-27 16:46 | Inpatient (IN) | payer MEDICAID ==
[2025-04-27 17:06] LABS: BASOPHILS PERCENT AUTO 0.5 % (0.0-1.0); EOSINOPHILS PERCENT AUTO 1.7 % (1.0-3.0); LYMPHOCYTES PERCENT AUTO 15.7 % (20.5-50.1); MONOCYTES PERCENT AUTO 9.5 % (2-8); NEUTROPHILS PERCENT AUTO 72.6 % (42.2-75.2); PLATELET COUNT,PLT 223 10^3/uL (150-450); RED BLOOD CELL COUNT 2.83 10^6/uL (4.2-5.4); WHITE BLOOD CELL COUNT,WBC 6.5 10^3/uL (5.0-10.0)
[2025-04-27 17:21] LABS: INR 0.9 (0.9-1.2)
[2025-04-27 17:25] LABS: B-TYPE NATRIURETIC PEPTIDE,BNP 3040.0 pg/ml (0-100)
[2025-04-27] MEDS: Furosemide 40 MG/4 ML VIAL IVPUSH ONE (17:38)
[2025-04-27 17:44] LABS: A/G RATIO 0.55; ALANINE AMINOTRANSFERASE,ALT 26.0 U/L (14-59); ASPARTATE AMNIOTRANSFERASE,AST 40.0 U/L (15-37); BILIRUBIN TOTAL 0.5 mg/dL (0.2-1.0); BLOOD UREA NITROGEN,BUN 31.0 mg/dL (7-18); CARBON DIOXIDE,CO2 25.0 mmol/L (21-32); CHLORIDE,CL 112.0 mmol/L (98-107); CREATININE 1.5 mg/dL (0.55-1.02); EST CRCL DRUG DOSING (CG) 26.5 mL/min; ESTIMATED GFR 38.0 mL/min (>=60); GLUCOSE RANDOM 91.0 mg/dL (70-99); POTASSIUM,K 4.2 mmol/L (3.5-5.1); PROTEIN TOTAL,TP 6.5 g/dL (6.4-8.2); SODIUM,NA 145.0 mmol/L (136-145)
[2025-04-27] MEDS ORDERED: Metoprolol Tartrate 5 MG/5 ML SDV IVPUSH PRN (20:23)
[2025-04-27] MEDS ORDERED: Magnesium Hydroxide 400 MG/5 ML Susp 30 ML Cup PO PRN (20:26)
[2025-04-27 20:48] LABS: T4 FREE 1.28 ng/dL (0.76-1.46); TSH ULTRASENSITIVE 2.76 uIU/mL (0.36-3.74)
[2025-04-27] MEDS: Albumin Human 25 GM in Premix Bag 1 BAG IV SCH (20:56)
[2025-04-27] MEDS: Dexamethasone 4 MG/ML SDV IVPUSH ONE (21:33)
[2025-04-27] MEDS: Multivitamins with Iron/Calcium/Folic Acid/Minerals Tab PO SCH (21:34)
[2025-04-27] MEDS: Insulin Glarg,Human.Rec.Analog 100 Unit/ML 10 ML Vial SUBCUT SCH (21:43)
[2025-04-28 06:40] LABS: BASOPHILS PERCENT AUTO 0.2 % (0.0-1.0); EOSINOPHILS PERCENT AUTO 0.0 % (1.0-3.0); LYMPHOCYTES PERCENT AUTO 7.2 % (20.5-50.1); MONOCYTES PERCENT AUTO 1.5 % (2-8); NEUTROPHILS PERCENT AUTO 91.1 % (42.2-75.2); PLATELET COUNT,PLT 174 10^3/uL (150-450); RED BLOOD CELL COUNT 2.47 10^6/uL (4.2-5.4); WHITE BLOOD CELL COUNT,WBC 5.9 10^3/uL (5.0-10.0)
[2025-04-28 06:55] LABS: ALANINE AMINOTRANSFERASE,ALT 19.0 U/L (14-59); ASPARTATE AMNIOTRANSFERASE,AST 19.0 U/L (15-37); BILIRUBIN TOTAL 0.4 mg/dL (0.2-1.0); BLOOD UREA NITROGEN,BUN 37.0 mg/dL (7-18); CARBON DIOXIDE,CO2 27.0 mmol/L (21-32); CHLORIDE,CL 112.0 mmol/L (98-107); CREATININE 1.75 mg/dL (0.55-1.02); EST CRCL DRUG DOSING (CG) 22.71 mL/min; GLUCOSE RANDOM 148.0 mg/dL (70-99); POTASSIUM,K 4.2 mmol/L (3.5-5.1); PROTEIN TOTAL,TP 6.0 g/dL (6.4-8.2); SODIUM,NA 147.0 mmol/L (136-145)
[2025-04-28 06:56] LABS: A/G RATIO 0.88; ESTIMATED GFR 32.0 mL/min (>=60)
[2025-04-28] MEDS: Saccharomyces Boulardii (Probiotic) 250 MG Cap PO SCH (09:32)
[2025-04-28] MEDS: Potassium Chloride 10 MEQ Tab.ER PO SCH (09:39)
[2025-04-28] MEDS: Heparin Sodium 5,000 Units/ML Vial SUBCUT SCH (09:40)
[2025-04-28] MEDS: Nystatin Topical Powder 60 GM Bottle TOP SCH (13:20)
[2025-04-29 06:24] LABS: BASOPHILS PERCENT AUTO 0.2 % (0.0-1.0); EOSINOPHILS PERCENT AUTO 0.1 % (1.0-3.0); LYMPHOCYTES PERCENT AUTO 9.5 % (20.5-50.1); MONOCYTES PERCENT AUTO 6.7 % (2-8); NEUTROPHILS PERCENT AUTO 83.5 % (42.2-75.2); PLATELET COUNT,PLT 200 10^3/uL (150-450); RED BLOOD CELL COUNT 2.41 10^6/uL (4.2-5.4); WHITE BLOOD CELL COUNT,WBC 8.9 10^3/uL (5.0-10.0)
[2025-04-29 06:54] LABS: A/G RATIO 1.5; ALANINE AMINOTRANSFERASE,ALT 29.0 U/L (14-59); ASPARTATE AMNIOTRANSFERASE,AST 34.0 U/L (15-37); BILIRUBIN TOTAL 0.3 mg/dL (0.2-1.0); BLOOD UREA NITROGEN,BUN 44.0 mg/dL (7-18); CARBON DIOXIDE,CO2 27.0 mmol/L (21-32); CHLORIDE,CL 112.0 mmol/L (98-107); CREATININE 1.92 mg/dL (0.55-1.02); EST CRCL DRUG DOSING (CG) 20.7 mL/min; GLUCOSE RANDOM 150.0 mg/dL (70-99); POTASSIUM,K 4.7 mmol/L (3.5-5.1); PROTEIN TOTAL,TP 6.7 g/dL (6.4-8.2); SODIUM,NA 146.0 mmol/L (136-145)
[2025-04-29 06:59] LABS: ESTIMATED GFR 28.0 mL/min (>=60)
[2025-04-29] MEDS: Sodium Chloride 0.9% 10 ML Syringe FLUSH PRN (08:56)
[2025-04-29] MEDS: Ondansetron 4 MG/2 ML SDV IVPUSH PRN (10:11)
[2025-04-30 06:54] LABS: BASOPHILS PERCENT AUTO 0.2 % (0.0-1.0); EOSINOPHILS PERCENT AUTO 0.6 % (1.0-3.0); LYMPHOCYTES PERCENT AUTO 9.9 % (20.5-50.1); MONOCYTES PERCENT AUTO 8.3 % (2-8); NEUTROPHILS PERCENT AUTO 81.0 % (42.2-75.2); PLATELET COUNT,PLT 212 10^3/uL (150-450); RED BLOOD CELL COUNT 2.60 10^6/uL (4.2-5.4); WHITE BLOOD CELL COUNT,WBC 8.1 10^3/uL (5.0-10.0)
[2025-04-30 07:33] LABS: A/G RATIO 1.1; ALANINE AMINOTRANSFERASE,ALT 27 U/L (14-59); ASPARTATE AMNIOTRANSFERASE,AST 23 U/L (15-37); BILIRUBIN TOTAL 0.3 mg/dL (0.2-1.0); BLOOD UREA NITROGEN,BUN 53 mg/dL (7-18); CHLORIDE,CL 114 mmol/L (98-107); CREATININE 2.37 mg/dL (0.55-1.02); EST CRCL DRUG DOSING (CG) 16.77 mL/min; GLUCOSE RANDOM 116 mg/dL (70-99); PROTEIN TOTAL,TP 6.4 g/dL (6.4-8.2)
[2025-04-30 07:47] LABS: CARBON DIOXIDE,CO2 26 mmol/L (21-32); POTASSIUM,K 6.1 mmol/L (3.5-5.1); SODIUM,NA 143 mmol/L (136-145)
[2025-04-30 07:49] LABS: ESTIMATED GFR 22 mL/min (>=60)
[2025-04-30] MEDS ORDERED: Sodium Polystyrene Sulfonate 15 GM/60 ML Susp 60 ML Bot PO ONE (09:44)
[2025-04-30] MEDS: Sodium Polystyrene Sulfonate 15 GM/60 ML Susp 60 ML Bot PO ONE (12:35)
[2025-04-30] MEDS: Acetaminophen/HYDROcodone 325-5 MG Tab PO PRN (14:27)
[2025-05-01 07:18] LABS: ALANINE AMINOTRANSFERASE,ALT 27 U/L (14-59); ASPARTATE AMNIOTRANSFERASE,AST 18 U/L (15-37); BILIRUBIN TOTAL 0.3 mg/dL (0.2-1.0); BLOOD UREA NITROGEN,BUN 58 mg/dL (7-18); CARBON DIOXIDE,CO2 26 mmol/L (21-32); CREATININE 2.03 mg/dL (0.55-1.02); EST CRCL DRUG DOSING (CG) 19.58 mL/min; GLUCOSE RANDOM 178 mg/dL (70-99); PLATELET COUNT,PLT 233 10^3/uL (150-450); PROTEIN TOTAL,TP 6.4 g/dL (6.4-8.2); RED BLOOD CELL COUNT 2.58 10^6/uL (4.2-5.4); SODIUM,NA 147 mmol/L (136-145); WHITE BLOOD CELL COUNT,WBC 7.1 10^3/uL (5.0-10.0)
[2025-05-01 07:21] LABS: BASOPHILS PERCENT AUTO 0.1 % (0.0-1.0); EOSINOPHILS PERCENT AUTO 0.1 % (1.0-3.0); LYMPHOCYTES PERCENT AUTO 7.4 % (20.5-50.1); MONOCYTES PERCENT AUTO 5.6 % (2-8); NEUTROPHILS PERCENT AUTO 86.8 % (42.2-75.2)
[2025-05-01 07:32] LABS: CHLORIDE,CL 114 mmol/L (98-107)
[2025-05-01 07:38] LABS: A/G RATIO 1.00; ESTIMATED GFR 27 mL/min (>=60); POTASSIUM,K 6.7 mmol/L (3.5-5.1)
[2025-05-01 08:10] LABS: BAND PERCENT MAN 2 %; LYMPHOCYTES PERCENT MAN 7 % (20-50); MONOCYTES PERCENT MAN 3 % (2-8); SEG NEUTROPHILS PERCENT MAN 88 % (42-75)
[2025-05-01] MEDS: Sennosides/Docusate Sodium 50-8.6 MG Tab PO PRN (10:36)
[2025-05-01] MEDS: Sodium Polystyrene Sulfonate 15 GM/60 ML Susp 60 ML Bot PO ONE (12:48)
[2025-05-01] MEDS: Furosemide 40 MG/4 ML VIAL IVPUSH ONE (16:47)
[2025-05-01] MEDS ORDERED: Heparin Sodium 5,000 Units/ML Vial SUBCUT SCH (21:00)
[2025-05-02] MEDS: hydrALAZINE 20 MG/ML SDV IVPUSH PRN (05:24)
[2025-05-02 06:36] LABS: BASOPHILS PERCENT AUTO 0.6 % (0.0-1.0); EOSINOPHILS PERCENT AUTO 2.3 % (1.0-3.0); LYMPHOCYTES PERCENT AUTO 18.8 % (20.5-50.1); MONOCYTES PERCENT AUTO 9.3 % (2-8); NEUTROPHILS PERCENT AUTO 69.0 % (42.2-75.2); PLATELET COUNT,PLT 248 10^3/uL (150-450); RED BLOOD CELL COUNT 2.57 10^6/uL (4.2-5.4); WHITE BLOOD CELL COUNT,WBC 8.8 10^3/uL (5.0-10.0)
[2025-05-02 06:50] LABS: BLOOD UREA NITROGEN,BUN 61.0 mg/dL (7-18); CARBON DIOXIDE,CO2 26.0 mmol/L (21-32); CHLORIDE,CL 113.0 mmol/L (98-107); CREATININE 2.11 mg/dL (0.55-1.02); EST CRCL DRUG DOSING (CG) 18.84 mL/min; GLUCOSE RANDOM 121.0 mg/dL (70-99); POTASSIUM,K 5.3 mmol/L (3.5-5.1); SODIUM,NA 143.0 mmol/L (136-145)
[2025-05-02 07:00] LABS: ESTIMATED GFR 25.0 mL/min (>=60)
[2025-05-02] MEDS: Sodium Polystyrene Sulfonate 15 GM/60 ML Susp 60 ML Bot PO SCH (09:43)
[2025-05-02 17:44] LABS: BODY FLUID TYPE PLEURAL FLUID
[2025-05-02 18:30] LABS: GLUCOSE,BODY FLUID 174; PROTEIN,BODY FLUID 2.5 mg/dL
[2025-05-03 06:35] LABS: CREATININE 1.6 mg/dL (0.55-1.02); EST CRCL DRUG DOSING (CG) 24.84 mL/min; VANCOMYCIN RANDOM 6.7 ug/mL (No Normal Range)
[2025-05-03 06:36] LABS: ESTIMATED GFR 35.0 mL/min (>=60)
[2025-05-03] MEDS ORDERED: 50% Dextrose in Water 50 ML Syringe IVPUSH PRN (16:24)
[2025-05-04 06:11] LABS: BASOPHILS PERCENT AUTO 0.3 % (0.0-1.0); EOSINOPHILS PERCENT AUTO 3.5 % (1.0-3.0); LYMPHOCYTES PERCENT AUTO 17.1 % (20.5-50.1); MONOCYTES PERCENT AUTO 9.0 % (2-8); NEUTROPHILS PERCENT AUTO 70.1 % (42.2-75.2); PLATELET COUNT,PLT 227 10^3/uL (150-450); RED BLOOD CELL COUNT 2.29 10^6/uL (4.2-5.4); WHITE BLOOD CELL COUNT,WBC 6.0 10^3/uL (5.0-10.0)
[2025-05-04 06:31] LABS: BLOOD UREA NITROGEN,BUN 59.0 mg/dL (7-18); CARBON DIOXIDE,CO2 26.0 mmol/L (21-32); CHLORIDE,CL 115.0 mmol/L (98-107); CREATININE 1.84 mg/dL (0.55-1.02); EST CRCL DRUG DOSING (CG) 21.6 mL/min; GLUCOSE RANDOM 154.0 mg/dL (70-99); POTASSIUM,K 4.7 mmol/L (3.5-5.1); SODIUM,NA 151.0 mmol/L (136-145)
[2025-05-04 06:37] LABS: ESTIMATED GFR 30.0 mL/min (>=60)
[2025-05-04 08:40] LABS: IRON,FE 50.0 ug/dL (50-170); PERCENT FE SATURATION 30.1 % (20.0-50.0)
[2025-05-04 09:22] LABS: FOLIC ACID > 20.0 ng/mL (8.6-58.9)
[2025-05-04 09:47] LABS: BASO'S 0 /cu mm; EO'S 0 /cu mm; LYMPH'S 55 /cu mm; MONO'S 11 /cu mm; OTHER 110 /cu mm; PMN'S 2 /cu mm
[2025-05-05 06:32] LABS: BASOPHILS PERCENT AUTO 0.5 % (0.0-1.0); EOSINOPHILS PERCENT AUTO 4.8 % (1.0-3.0); LYMPHOCYTES PERCENT AUTO 16.4 % (20.5-50.1); MONOCYTES PERCENT AUTO 8.6 % (2-8); NEUTROPHILS PERCENT AUTO 69.7 % (42.2-75.2); PLATELET COUNT,PLT 198 10^3/uL (150-450); RED BLOOD CELL COUNT 2.60 10^6/uL (4.2-5.4); WHITE BLOOD CELL COUNT,WBC 6.0 10^3/uL (5.0-10.0)
[2025-05-05 06:48] LABS: BLOOD UREA NITROGEN,BUN 56.0 mg/dL (7-18); CARBON DIOXIDE,CO2 26.0 mmol/L (21-32); CHLORIDE,CL 115.0 mmol/L (98-107); CREATININE 1.64 mg/dL (0.55-1.02); EST CRCL DRUG DOSING (CG) 24.24 mL/min; GLUCOSE RANDOM 128.0 mg/dL (70-99); POTASSIUM,K 5.4 mmol/L (3.5-5.1); SODIUM,NA 148.0 mmol/L (136-145)
[2025-05-05 06:55] LABS: ESTIMATED GFR 34.0 mL/min (>=60)
[2025-05-05] MEDS: Sodium Polystyrene Sulfonate 15 GM/60 ML Susp 60 ML Bot PO ONE (09:26)
[2025-05-05 09:59] LABS: BODY FLUID TYPE PLEURAL FLUID
[2025-05-05 10:49] LABS: PROTEIN,BODY FLUID < 2.0 mg/dL
[2025-05-05 11:47] LABS: BASO'S 0 /cu mm; EO'S 0 /cu mm; LYMPH'S 3 /cu mm; MONO'S 3 /cu mm; OTHER 22 /cu mm; PMN'S 0 /cu mm
[2025-05-06 06:13] LABS: BASOPHILS PERCENT AUTO 0.3 % (0.0-1.0); EOSINOPHILS PERCENT AUTO 4.9 % (1.0-3.0); LYMPHOCYTES PERCENT AUTO 13.1 % (20.5-50.1); MONOCYTES PERCENT AUTO 9.1 % (2-8); NEUTROPHILS PERCENT AUTO 72.6 % (42.2-75.2); PLATELET COUNT,PLT 197 10^3/uL (150-450); RED BLOOD CELL COUNT 2.50 10^6/uL (4.2-5.4); WHITE BLOOD CELL COUNT,WBC 6.4 10^3/uL (5.0-10.0)
[2025-05-06 06:31] LABS: BLOOD UREA NITROGEN,BUN 59.0 mg/dL (7-18); CARBON DIOXIDE,CO2 25.0 mmol/L (21-32); CHLORIDE,CL 114.0 mmol/L (98-107); CREATININE 1.71 mg/dL (0.55-1.02); EST CRCL DRUG DOSING (CG) 23.24 mL/min; GLUCOSE RANDOM 121.0 mg/dL (70-99); POTASSIUM,K 5.7 mmol/L (3.5-5.1); SODIUM,NA 146.0 mmol/L (136-145)
[2025-05-06 06:40] LABS: ESTIMATED GFR 33.0 mL/min (>=60)
[2025-05-06] MEDS: Sodium Polystyrene Sulfonate 15 GM/60 ML Susp 60 ML Bot PO SCH (09:59)
[2025-05-06 21:50] LABS: BASE EXCESS ARTERIAL -4 mmol/L ((-2)-(+3)); BICARBONATE,ARTERIAL 20.9 mmol/L (22-26); O2 DELIVERY DEVICE ROOM AIR; O2 SATURATION ARTERIAL 97 % (95-100); PCO2 ARTERIAL 42 mmHg (35-45); PH,ARTERIAL 7.32 (7.35-7.45); PO2 ARTERIAL 82 mmHg (70-100)
[2025-05-07 06:20] LABS: BASOPHILS PERCENT AUTO 0.7 % (0.0-1.0); EOSINOPHILS PERCENT AUTO 5.9 % (1.0-3.0); LYMPHOCYTES PERCENT AUTO 13.6 % (20.5-50.1); MONOCYTES PERCENT AUTO 8.5 % (2-8); NEUTROPHILS PERCENT AUTO 71.3 % (42.2-75.2); PLATELET COUNT,PLT 192 10^3/uL (150-450); RED BLOOD CELL COUNT 2.48 10^6/uL (4.2-5.4); WHITE BLOOD CELL COUNT,WBC 5.8 10^3/uL (5.0-10.0)
[2025-05-07 06:32] LABS: BLOOD UREA NITROGEN,BUN 57.0 mg/dL (7-18); CARBON DIOXIDE,CO2 26.0 mmol/L (21-32); CHLORIDE,CL 115.0 mmol/L (98-107); CREATININE 1.58 mg/dL (0.55-1.02); EST CRCL DRUG DOSING (CG) 25.16 mL/min; GLUCOSE RANDOM 105.0 mg/dL (70-99); POTASSIUM,K 5.3 mmol/L (3.5-5.1); SODIUM,NA 147.0 mmol/L (136-145)
[2025-05-07 06:34] LABS: ESTIMATED GFR 36.0 mL/min (>=60)
[2025-05-07] MEDS: Furosemide 40 MG/4 ML VIAL IVPUSH ONE (11:52)
[2025-05-07] MEDS: Sodium Polystyrene Sulfonate 15 GM/60 ML Susp 60 ML Bot PO SCH (11:53)
[2025-05-07 16:39] LABS: BLOOD UREA NITROGEN,BUN 54.0 mg/dL (7-18); CARBON DIOXIDE,CO2 25.0 mmol/L (21-32); CHLORIDE,CL 113.0 mmol/L (98-107); CREATININE 1.67 mg/dL (0.55-1.02); EST CRCL DRUG DOSING (CG) 23.8 mL/min; ESTIMATED GFR 34.0 mL/min (>=60); GLUCOSE RANDOM 171.0 mg/dL (70-99); POTASSIUM,K 5.1 mmol/L (3.5-5.1); SODIUM,NA 147.0 mmol/L (136-145)
[2025-05-08 06:14] LABS: BASOPHILS PERCENT AUTO 0.6 % (0.0-1.0); EOSINOPHILS PERCENT AUTO 5.2 % (1.0-3.0); LYMPHOCYTES PERCENT AUTO 11.8 % (20.5-50.1); MONOCYTES PERCENT AUTO 8.4 % (2-8); NEUTROPHILS PERCENT AUTO 74.0 % (42.2-75.2); PLATELET COUNT,PLT 192 10^3/uL (150-450); RED BLOOD CELL COUNT 2.42 10^6/uL (4.2-5.4); WHITE BLOOD CELL COUNT,WBC 6.8 10^3/uL (5.0-10.0)
[2025-05-08 06:30] LABS: BLOOD UREA NITROGEN,BUN 51.0 mg/dL (7-18); CARBON DIOXIDE,CO2 25.0 mmol/L (21-32); CHLORIDE,CL 114.0 mmol/L (98-107); CREATININE 1.47 mg/dL (0.55-1.02); EST CRCL DRUG DOSING (CG) 27.04 mL/min; GLUCOSE RANDOM 109.0 mg/dL (70-99); POTASSIUM,K 4.9 mmol/L (3.5-5.1); SODIUM,NA 147.0 mmol/L (136-145)
[2025-05-08 06:31] LABS: ESTIMATED GFR 39.0 mL/min (>=60)
[2025-05-08] MEDS: Furosemide 40 MG/4 ML VIAL IVPUSH ONE (11:02)
[2025-05-09 06:23] LABS: BASOPHILS PERCENT AUTO 0.5 % (0.0-1.0); EOSINOPHILS PERCENT AUTO 4.6 % (1.0-3.0); LYMPHOCYTES PERCENT AUTO 10.7 % (20.5-50.1); MONOCYTES PERCENT AUTO 8.6 % (2-8); NEUTROPHILS PERCENT AUTO 75.6 % (42.2-75.2); PLATELET COUNT,PLT 186 10^3/uL (150-450); RED BLOOD CELL COUNT 2.43 10^6/uL (4.2-5.4); WHITE BLOOD CELL COUNT,WBC 5.9 10^3/uL (5.0-10.0)
[2025-05-09 06:47] LABS: BLOOD UREA NITROGEN,BUN 50.0 mg/dL (7-18); CARBON DIOXIDE,CO2 25.0 mmol/L (21-32); CHLORIDE,CL 112.0 mmol/L (98-107); CREATININE 1.53 mg/dL (0.55-1.02); EST CRCL DRUG DOSING (CG) 25.98 mL/min; ESTIMATED GFR 37.0 mL/min (>=60); GLUCOSE RANDOM 130.0 mg/dL (70-99); POTASSIUM,K 4.9 mmol/L (3.5-5.1); SODIUM,NA 144.0 mmol/L (136-145)
[2025-05-09 12:27] VITALS: BP 126/58; PULSE 66
== END 2025-05-09 14:00 | disposition home or self-care (01) | DRG 177 ==
LOC: DL.ED 16:46 → DL.MS 18:39 → DL.ED 19:37 → DL.MS 05-08 15:36
PROVIDERS: ADMIT Internal Medicine; ATTEND Internal Medicine
PROC: 3E03329 Introduction of Other Anti-infective into Peripheral Vein, Percutaneous Approach (ICD-10-PCS; 2025-04-27)
PROC: 5A09357 Assistance with Respiratory Ventilation, Less than 24 Consecutive Hours, Continuous Positive Airway Pressure (ICD-10-PCS; 2025-04-30)
PROC: 0W993ZZ Drainage of Right Pleural Cavity, Percutaneous Approach (ICD-10-PCS; principal; 2025-05-02)
PROC: 0W9B3ZZ Drainage of Left Pleural Cavity, Percutaneous Approach (ICD-10-PCS; 2025-05-04)
PROC: 30233N1 Transfusion of Nonautologous Red Blood Cells into Peripheral Vein, Percutaneous Approach (ICD-10-PCS; 2025-05-04)
PROC: 4A033R1 Measurement of Arterial Saturation, Peripheral, Percutaneous Approach (ICD-10-PCS; 2025-05-06)
DX: J15.212 Pneumonia due to Methicillin resistant Staphylococcus aureus (principal); I50.33 Acute on chronic diastolic (congestive) heart failure; J96.01 Acute respiratory failure with hypoxia; I13.0 Hypertensive heart and chronic kidney disease with heart failure and stage 1 through stage 4 chronic kidney disease, or unspecified chronic kidney disease; E44.0 Moderate protein-calorie malnutrition; E87.0 Hyperosmolality and hypernatremia; J91.8 Pleural effusion in other conditions classified elsewhere; D68.00 Von Willebrand disease, unspecified; H54.7 Unspecified visual loss; F41.9 Anxiety disorder, unspecified; E11.22 Type 2 diabetes mellitus with diabetic chronic kidney disease; N18.30 Chronic kidney disease, stage 3 unspecified; D63.1 Anemia in chronic kidney disease; E11.42 Type 2 diabetes mellitus with diabetic polyneuropathy; E88.09 Other disorders of plasma-protein metabolism, not elsewhere classified; M19.90 Unspecified osteoarthritis, unspecified site; E66.811 Obesity, class 1; F43.10 Post-traumatic stress disorder, unspecified; E87.5 Hyperkalemia; E83.41 Hypermagnesemia; E11.65 Type 2 diabetes mellitus with hyperglycemia; E87.8 Other disorders of electrolyte and fluid balance, not elsewhere classified; Z88.8 Allergy status to other drugs, medicaments and biological substances; Z91.018 Allergy to other foods; Z87.891 Personal history of nicotine dependence; Z86.16 Personal history of COVID-19; Z98.49 Cataract extraction status, unspecified eye; Z90.49 Acquired absence of other specified parts of digestive tract; Z98.51 Tubal ligation status; Z79.899 Other long term (current) drug therapy; Z79.82 Long term (current) use of aspirin; Z79.4 Long term (current) use of insulin; G47.33 Obstructive sleep apnea (adult) (pediatric); Z68.34 Body mass index [BMI] 34.0-34.9, adult
CPT/HCPCS: 36415; 36430; 36600; 71045; 71046; 71250; 80048; 80053; 80202; 82272; 82565; 82607; 82746; 82803; 82945; 82947; 83540; 83550; 83615; 83735; 83880; 84132; 84157; 84295; 84439; 84443; 84478; 84484; 85025; 85610; 86140; 86850; 86900; 86901; 86920; 86922; 87040; 87070; 87077; 87186; 87205; 89051; 93005; 93010; 93306; 94060; 94640; 94660; 94668; 94762; 96365; 96375; 97161-GP; 97165-GO; 99223; 99232; 99239; 99285; 99285-25; A9270-GY; J0360; J0456; J0696; J1100; J1644; J1815-GY; J1938; J2305; J2405; J2470; J3373; J3490; J7050; J7070; J8540; P9016; P9047; U0002

== ENCOUNTER 2025-05-12 17:23 | Emergency (ER) | payer MEDICAID ==
[2025-05-12 14:28] LABS: BASOPHILS PERCENT AUTO 0.6 % (0.0-1.0); EOSINOPHILS PERCENT AUTO 0.4 % (1.0-3.0); LYMPHOCYTES PERCENT AUTO 7.3 % (20.5-50.1); MONOCYTES PERCENT AUTO 7.5 % (2-8); NEUTROPHILS PERCENT AUTO 84.2 % (42.2-75.2); PLATELET COUNT,PLT 187 10^3/uL (150-450); RED BLOOD CELL COUNT 2.59 10^6/uL (4.2-5.4); WHITE BLOOD CELL COUNT,WBC 7.8 10^3/uL (5.0-10.0)
[2025-05-12 14:45] LABS: B-TYPE NATRIURETIC PEPTIDE,BNP 1360 pg/ml (0-100)
[2025-05-12 14:51] LABS: ALANINE AMINOTRANSFERASE,ALT 76 U/L (14-59); ASPARTATE AMNIOTRANSFERASE,AST 46 U/L (15-37); BILIRUBIN TOTAL 0.4 mg/dL (0.2-1.0); BLOOD UREA NITROGEN,BUN 59 mg/dL (7-18); CARBON DIOXIDE,CO2 26 mmol/L (21-32); CHLORIDE,CL 110 mmol/L (98-107); CREATININE 1.74 mg/dL (0.55-1.02); GLUCOSE RANDOM 119 mg/dL (70-99); LACTIC ACID 0.6 mmol/L (0.4-2.0); POTASSIUM,K 5.4 mmol/L (3.5-5.1); PROTEIN TOTAL,TP 6.4 g/dL (6.4-8.2); SODIUM,NA 144 mmol/L (136-145)
[2025-05-12 14:53] LABS: A/G RATIO 0.88; ESTIMATED GFR 32 mL/min (>=60)
[2025-05-12] MEDS: Furosemide 40 MG/4 ML VIAL IVPUSH ONE (15:19)
[2025-05-12 16:22] VITALS: PULSE 68
[2025-05-12 16:23] VITALS: BP 136/65
[~2025-05-12 17:23] MED LIST changes: -Sodium Chloride 0.9% 10 ML Syringe FLUSH SCH
== END 2025-05-12 18:10 ==
LOC: DL.ED 17:23
DX: I27.20 Pulmonary hypertension, unspecified (principal); E11.9 Type 2 diabetes mellitus without complications; Z79.899 Other long term (current) drug therapy; Z79.82 Long term (current) use of aspirin; Z88.8 Allergy status to other drugs, medicaments and biological substances; Z91.018 Allergy to other foods; Z86.16 Personal history of COVID-19; Z90.49 Acquired absence of other specified parts of digestive tract
CPT/HCPCS: 36415; 71045; 80053; 83605; 83880; 84145; 84484; 85025; 87040; 93005; 94640; J1938; J7620; 96374; 99285-25; A9270-GY